=== PATIENT | male | born 1995 | race Caucasian/White ===

== ENCOUNTER 2025-08-10 07:41 | Observation (INO) | payer OTHER ==
[2025-08-10] MEDS: Ondansetron 4 MG/2 ML SDV IVPUSH ONE (08:15)
[2025-08-10 08:16] LABS: APPEARANCE,URINE CLEAR (Clear); GLUCOSE,URINE NEGATIVE (Negative); OCCULT BLOOD,URINE NEGATIVE (Negative)
[2025-08-10 08:17] LABS: BASOPHILS ABSOLUTE AUTO 0.0 K/mm3 (0.0-0.2); BASOPHILS PERCENT AUTO 0.3 % (0.0-1.0); EOSINOPHILS ABSOLUTE AUTO 0.1 K/mm3 (0.0-0.4); EOSINOPHILS PERCENT AUTO 0.7 % (0.0-6.0); IMMATURE GRAN ABSOLUTE AUTO 0.05 K/mm3 (0.00-0.05); IMMATURE GRAN PERCENT AUTO 0.3 % (0.0-0.4); LYMPHOCYTES ABSOLUTE AUTO 2.2 K/mm3 (1.0-4.8); LYMPHOCYTES PERCENT AUTO 14.8 % (24.0-44.0); MEAN PLATELET VOLUME 9.4 fl (9.4-12.4); MONOCYTES ABSOLUTE AUTO 1.0 K/mm3 (0.0-0.8); MONOCYTES PERCENT AUTO 6.5 % (0.0-8.0); NEUTROPHILS ABSOLUTE AUTO 11.7 K/mm3 (1.8-7.7); NEUTROPHILS PERCENT AUTO 77.4 % (41.0-71.0); NRBC ABSOLUTE 0.00 (0.00-0.02); NRBC PERCENT 0.0 % (0.0-0.2); PLATELET COUNT,PLT 289 K/mm3 (150-400); RED BLOOD CELL COUNT 5.19 M/mm3 (4.52-5.90); WHITE BLOOD CELL COUNT,WBC 15.12 K/mm3 (3.9-11.3)
[2025-08-10] MEDS: Ketorolac 60 MG/2 ML SDV IVPUSH STA (08:18)
[2025-08-10 08:34] LABS: BUPRENORPHINE SCREEN,URINE NEGATIVE (CUTOFF=10); METHADONE SCREEN, URINE NEGATIVE (CUT0FF=200); METHAMPHETAMINES SCREEN, URINE NEGATIVE (CUTOFF=500); OXYCODONE SCREEN,URINE NEGATIVE (CUT0FF=100); THC SCREEN,URINE 20 NG/ML PRESUMPTIVE POSITIVE (CUTOFF=50)
[2025-08-10 08:39] LABS: AMPHETAMINES SCREEN, URINE NEGATIVE (CUTOFF=500)
[2025-08-10 08:40] LABS: A/G RATIO 1.1 (1-2); ALANINE AMINOTRANSFERASE,ALT 87.0 U/L (16-63); ASPARTATE AMNIOTRANSFERASE,AST 29.0 U/L (15-37); BILIRUBIN TOTAL 0.9 mg/dL (0.2-1.0); BLOOD UREA NITROGEN,BUN 9.0 mg/dL (7-18); CARBON DIOXIDE,CO2 26.0 mEq/L (21-32); CHLORIDE,CL 105.0 mEq/L (98-107); CREATINE KINASE,CK 85.0 U/L (39-308); CREATININE 1.0 mg/dL (0.7-1.3); EST CRCL DRUG DOSING (CG) 130.2 mL/min; ESTIMATED GFR 103.0 mL/min (>60); GLUCOSE RANDOM 116.0 mg/dL (70-99); POTASSIUM,K 3.7 mEq/L (3.5-5.1); PROTEIN TOTAL,TP 7.6 g/dl (6.4-8.2); SODIUM,NA 141.0 mEq/L (136-145)
[2025-08-10] MEDS ORDERED: Dexamethasone 4 MG/ML 5 ML MDV ONE (09:10)
[2025-08-10] MEDS ORDERED: dexmedeTOMIDine HCl 200 MCG/2 ML SDV ONE (09:10)
[2025-08-10] MEDS ORDERED: Ropivacaine 0.5% 5 MG/ML 30 ML SDV ONE (09:10)
[2025-08-10] MEDS ORDERED: Esmolol 100 MG/10 ML SDV ONE (09:10)
[2025-08-10] MEDS ORDERED: Midazolam 1 MG/ML 2 ML SDV ONE ×2 (09:12→12:12)
[2025-08-10] MEDS ORDERED: fentaNYL 250 MCG/5 ML SDV ONE (09:13)
[2025-08-10] MEDS ORDERED: Ketamine HCL/NACL, ISO-OSM 50 MG/5 ML Syringe ONE (09:13)
[2025-08-10] MEDS ORDERED: Glycopyrrolate 0.2 MG/ML 2 ML SDV ONE (09:45)
[2025-08-10] MEDS ORDERED: fentaNYL 100 MCG/2 ML SDV IVPUSH PRN (09:50)
[2025-08-10] MEDS ORDERED: Sodium Chloride 0.9% 10 ML Syringe FLUSH PRN (09:50)
[2025-08-10] MEDS ORDERED: Ondansetron 4 MG/2 ML SDV IVPUSH PRN (09:50)
[2025-08-10] MEDS: Heparin Sodium 5,000 Units/ML Vial SUBCUT ONE (09:55)
[2025-08-10] MEDS ORDERED: propofoL 1,000 MG/100 ML 100 ML ONE (10:02)
[2025-08-10] MEDS: Lactated Ringers 1,000 ML IV SCH ×2 (10:48→20:30)
[2025-08-10] MEDS ORDERED: Labetalol 100 MG/20 ML MDV ONE (12:25)
[2025-08-10] MEDS ORDERED: propofoL 500 MG/50 ML 50 ML ONE ×2 (12:44→13:13)
[2025-08-10] MEDS ORDERED: Lactated Ringers 1,000 ML IV ONE (14:00)
[2025-08-10 19:18] LABS: BASOPHILS ABSOLUTE AUTO 0.0 K/mm3 (0.0-0.2); BASOPHILS PERCENT AUTO 0.2 % (0.0-1.0); EOSINOPHILS ABSOLUTE AUTO 0.0 K/mm3 (0.0-0.4); EOSINOPHILS PERCENT AUTO 0.0 % (0.0-6.0); IMMATURE GRAN ABSOLUTE AUTO 0.10 K/mm3 (0.00-0.05); IMMATURE GRAN PERCENT AUTO 0.5 % (0.0-0.4); LYMPHOCYTES ABSOLUTE AUTO 0.8 K/mm3 (1.0-4.8); LYMPHOCYTES PERCENT AUTO 3.9 % (24.0-44.0); MEAN PLATELET VOLUME 9.1 fl (9.4-12.4); MONOCYTES ABSOLUTE AUTO 1.2 K/mm3 (0.0-0.8); MONOCYTES PERCENT AUTO 6.1 % (0.0-8.0); NEUTROPHILS ABSOLUTE AUTO 17.8 K/mm3 (1.8-7.7); NEUTROPHILS PERCENT AUTO 89.3 % (41.0-71.0); NRBC ABSOLUTE 0.00 (0.00-0.02); NRBC PERCENT 0.0 % (0.0-0.2); PLATELET COUNT,PLT 245 K/mm3 (150-400); RED BLOOD CELL COUNT 4.81 M/mm3 (4.52-5.90); WHITE BLOOD CELL COUNT,WBC 19.92 K/mm3 (3.9-11.3)
[2025-08-10] MEDS: Ketorolac 30 MG/ML SDV IVPUSH SCH ×2 (19:56→19:57)
[2025-08-10] MEDS: Sodium Chloride 0.9% 10 ML Syringe FLUSH SCH (20:31)
[2025-08-10] MEDS: Lactated Ringers 500 ML IV ONE (21:14)
== END 2025-08-11 12:58 | disposition home or self-care (01) ==
LOC: JD.ED 07:41 → JD.SDS 09:31 → JD.MS 16:08
PROVIDERS: ADMIT Surgery; ATTEND Surgery
DX: K35.80 Unspecified acute appendicitis (principal); F17.210 Nicotine dependence, cigarettes, uncomplicated; Z79.899 Other long term (current) drug therapy
CPT/HCPCS: 36415; 44970; 64425; 74176; 80053; 80306; 81001; 82550; 83690; 83735; 85025; 94640; 96365; 96372; 96375; 99285; A9270; J0694; J1100; J1596; J1644; J1805; J1885; J1920; J2003; J2250; J2405; J2543; J2704; J2795; J3010; J7030; J7120; J7620; 00840; 64488; 88304; 99140; J1171; J3490

== ENCOUNTER 2025-08-23 12:53 | Inpatient (IN) | payer OTHER ==
[2025-08-23] MEDS: Sodium Chloride 0.9% 10 ML Syringe FLUSH ONE ×2 (13:37→17:50)
[2025-08-23] MEDS: Iopamidol 612 MG/ML 100 ML Bottle IVPUSH ONE (13:37)
[2025-08-23 13:38] LABS: BASOPHILS ABSOLUTE AUTO 0.1 K/mm3 (0.0-0.2); BASOPHILS PERCENT AUTO 0.3 % (0.0-1.0); EOSINOPHILS ABSOLUTE AUTO 0.1 K/mm3 (0.0-0.4); EOSINOPHILS PERCENT AUTO 0.2 % (0.0-6.0); IMMATURE GRAN ABSOLUTE AUTO 0.22 K/mm3 (0.00-0.05); IMMATURE GRAN PERCENT AUTO 1.0 % (0.0-0.4); LYMPHOCYTES ABSOLUTE AUTO 2.1 K/mm3 (1.0-4.8); LYMPHOCYTES PERCENT AUTO 9.2 % (24.0-44.0); MEAN PLATELET VOLUME 8.9 fl (9.4-12.4); MONOCYTES ABSOLUTE AUTO 1.8 K/mm3 (0.0-0.8); MONOCYTES PERCENT AUTO 8.0 % (0.0-8.0); NEUTROPHILS ABSOLUTE AUTO 18.5 K/mm3 (1.8-7.7); NEUTROPHILS PERCENT AUTO 81.3 % (41.0-71.0); NRBC ABSOLUTE 0.00 (0.00-0.02); NRBC PERCENT 0.0 % (0.0-0.2); PLATELET COUNT,PLT 540 K/mm3 (150-400); RED BLOOD CELL COUNT 4.80 M/mm3 (4.52-5.90); WHITE BLOOD CELL COUNT,WBC 22.77 K/mm3 (3.9-11.3)
[2025-08-23] MEDS: Sodium Chloride 0.9% 10 ML Syringe FLUSH PRN (13:44)
[2025-08-23 13:58] LABS: A/G RATIO 0.7 (1-2); ALANINE AMINOTRANSFERASE,ALT 122.0 U/L (16-63); ASPARTATE AMNIOTRANSFERASE,AST 63.0 U/L (15-37); BILIRUBIN TOTAL 1.0 mg/dL (0.2-1.0); BLOOD UREA NITROGEN,BUN 10.0 mg/dL (7-18); CARBON DIOXIDE,CO2 27.0 mEq/L (21-32); CHLORIDE,CL 99.0 mEq/L (98-107); CREATININE 1.1 mg/dL (0.7-1.3); EST CRCL DRUG DOSING (CG) 118.36 mL/min; ESTIMATED GFR 91.0 mL/min (>60); GLUCOSE RANDOM 127.0 mg/dL (70-99); POTASSIUM,K 3.2 mEq/L (3.5-5.1); PROTEIN TOTAL,TP 8.1 g/dl (6.4-8.2); SODIUM,NA 139.0 mEq/L (136-145)
[2025-08-23] MEDS: metroNIDAZOLE/Normal Saline 500 MG in Premix Bag 1 BAG IV ONE (15:27)
[2025-08-23 17:15] LABS: APPEARANCE,URINE CLEAR (Clear); GLUCOSE,URINE NEGATIVE (Negative); OCCULT BLOOD,URINE TRACE-INTACT (Negative)
[2025-08-23 17:38] LABS: EPITHELIAL CELLS,URINE 0-5 /hpf (0-5)
[2025-08-23] MEDS: Iopamidol 755 Mg/ML 100 ML Bottle IVPUSH ONE (17:50)
[2025-08-23] MEDS ORDERED: Ondansetron 4 MG/2 ML SDV IV PRN (20:35)
[2025-08-23 21:00] LABS: BASOPHILS ABSOLUTE AUTO 0.1 K/mm3 (0.0-0.2); BASOPHILS PERCENT AUTO 0.3 % (0.0-1.0); EOSINOPHILS ABSOLUTE AUTO 0.1 K/mm3 (0.0-0.4); EOSINOPHILS PERCENT AUTO 0.3 % (0.0-6.0); IMMATURE GRAN ABSOLUTE AUTO 0.15 K/mm3 (0.00-0.05); IMMATURE GRAN PERCENT AUTO 0.8 % (0.0-0.4); LYMPHOCYTES ABSOLUTE AUTO 2.7 K/mm3 (1.0-4.8); LYMPHOCYTES PERCENT AUTO 14.8 % (24.0-44.0); MEAN PLATELET VOLUME 8.7 fl (9.4-12.4); MONOCYTES ABSOLUTE AUTO 1.6 K/mm3 (0.0-0.8); MONOCYTES PERCENT AUTO 8.8 % (0.0-8.0); NEUTROPHILS ABSOLUTE AUTO 13.7 K/mm3 (1.8-7.7); NEUTROPHILS PERCENT AUTO 75.0 % (41.0-71.0); NRBC ABSOLUTE 0.00 (0.00-0.02); NRBC PERCENT 0.0 % (0.0-0.2); PLATELET COUNT,PLT 520 K/mm3 (150-400); RED BLOOD CELL COUNT 4.54 M/mm3 (4.52-5.90); WHITE BLOOD CELL COUNT,WBC 18.33 K/mm3 (3.9-11.3)
[2025-08-23 21:14] LABS: BLOOD UREA NITROGEN,BUN 10.0 mg/dL (7-18); CARBON DIOXIDE,CO2 28.0 mEq/L (21-32); CHLORIDE,CL 102.0 mEq/L (98-107); CREATININE 0.9 mg/dL (0.7-1.3); EST CRCL DRUG DOSING (CG) 102.5 mL/min; ESTIMATED GFR 116.0 mL/min (>60); GLUCOSE RANDOM 105.0 mg/dL (70-99); POTASSIUM,K 3.8 mEq/L (3.5-5.1); SODIUM,NA 140.0 mEq/L (136-145)
[2025-08-24 09:56] LABS: MEAN PLATELET VOLUME 8.8 fl (9.4-12.4); NRBC ABSOLUTE 0.00 (0.00-0.02); NRBC PERCENT 0.0 % (0.0-0.2); PLATELET COUNT,PLT 544 K/mm3 (150-400); RED BLOOD CELL COUNT 4.50 M/mm3 (4.52-5.90); WHITE BLOOD CELL COUNT,WBC 15.25 K/mm3 (3.9-11.3)
[2025-08-24 10:12] LABS: BLOOD UREA NITROGEN,BUN 9.0 mg/dL (7-18); CARBON DIOXIDE,CO2 27.0 mEq/L (21-32); CHLORIDE,CL 103.0 mEq/L (98-107); CREATININE 0.9 mg/dL (0.7-1.3); EST CRCL DRUG DOSING (CG) 118.33 mL/min; ESTIMATED GFR 116.0 mL/min (>60); GLUCOSE RANDOM 108.0 mg/dL (70-99); POTASSIUM,K 3.1 mEq/L (3.5-5.1); SODIUM,NA 140.0 mEq/L (136-145)
== END 2025-08-24 10:25 | disposition other institution (70) | DRG 603 ==
LOC: JD.ED 12:53 → JD.MS 20:35
PROVIDERS: ADMIT Surgery; ATTEND Surgery
DX: T81.49XA Infection following a procedure, other surgical site, initial encounter (principal); L02.211 Cutaneous abscess of abdominal wall; N20.0 Calculus of kidney; F41.9 Anxiety disorder, unspecified; F32.A Depression, unspecified; F43.12 Post-traumatic stress disorder, chronic; F17.200 Nicotine dependence, unspecified, uncomplicated; E86.0 Dehydration; Z79.899 Other long term (current) drug therapy; Z98.890 Other specified postprocedural states
CPT/HCPCS: 36415; 74177 ×2; 80053; 81001; 83735; 85025; 86140; 96361; 96365; 96367; 99285; J1836; J2543; J7030; Q9967 ×2; 80048; 85027; 94760; A9270-GY